=== PATIENT | male | born 1935 | race Caucasian/White ===

== ENCOUNTER → 2017-07-24 | Day surgery (SDC) | payer MEDICARE, OTHER ==
[~2017-07-24] MED LIST: ALBUAER3; ASPI81TA81; CALCCHW25 CHEW; CELE200C PO; FLUT50SP EACH NARE; GINK120T4 PO; HYDR-3516 PO; LIDOCAINE HCL 1% PF 30 ML VIAL INFIL ONE; NEXI40CA PO; PROPOFOL 200 MG/20 ML AMP IV ONE; ROSU10 PO; SODIUM CHLORIDE 0.9% 10 ML VIAL ONE; TRIAMCINOLONE ACETONIDE 40 MG/ML VIAL NERV BLOCK ONE; methylPREDNISolone ACETATE 80 MG/ML VIAL ONE
--- NOTE | 2017-07-26 18:51 | M6 ---
cc: ADILIA CESPEDES M.D. DATE: 07/24/2017 DATE OF : 1935. PROCEDURE PERFORMED: Fluoroscopically guided L5-S1 interlaminar epidural steroid injection. DESCRIPTION OF THE PROCEDURE IN DETAIL: History and physical was completed and signed. Consent was signed. Procedure site was marked. Medications were listed and reconciled. Pain score was recorded. Allergies were noted. Time out was taken. Fluoroscopy time was recorded where applicable. Sedation was administered or directed by Dr. Cespedes. The patient was given oxygen. The patient was monitored by a registered nurse. Total procedure time was greater than 15 minutes. IV was started, blood pressure cuff, pulse oximeter and EKG were applied. The patient was placed in the prone position on a Artur table and sedated with small amounts of propofol titrated to effect. The vital signs were monitored and remained stable throughout the procedure. The lumbar area was prepped with alcohol and 10% Betadine solution and draped with sterile drapes. Fluoroscopy was used to visualize the L5-S1 interlaminar space. The skin was infiltrated with 1% Xylocaine using a 27-gauge needle. then a 3-1/2-inch 18-gauge Mao needle was advanced using fluoroscopic guidance and the [id number]-sy-[id number] technique into the epidural space at L5-S1 slightly to the right of the midline. There was negative aspiration for blood or any other type of fluid and the patient was given 10 mL of 0.5% Xylocaine and 80 mg of Depo-Medrol. Following this, the patient was taken to the recovery room with stable vital signs. W. MD STARLA Bentley/KEYUR /9:44 AM /6:40 PM
== END | disposition home or self-care (01) ==
LOC: PHSDC 07:46
PROVIDERS: ATTEND Pain Medicine Interventional Pain Medicine
DX: M54.5 Low back pain (principal)
CPT/HCPCS: 62323; 99152; J1040; J3301